=== PATIENT | female | born 1945 | race Caucasian/White ===

== ENCOUNTER 2017-10-18 05:28 | Observation (INO) | payer OTHER ==
--- NOTE | 2017-10-17 13:25 | GHP ---
[f rep st] PREOP HISTORY AND PHYSICAL DATE OF ADMISSION: 10/18/2017 CHIEF COMPLAINT: Patient is a 72-year-old, with a right-sided thyroid nodule. HISTORY OF PRESENT ILLNESS: She has had a right-sided thyroid nodule that has been biopsied, and mario ws findings suspicious for a follicular neoplasm, with papillary nuclear features. She has a 2.7 cm nodule on the right. We have recommended hemithyroidectomy, with possible total thyroidectomy. She has seen Endocrine as well. PHYSICAL EXAM: NECK: A 2 cm right-sided thyroid nodule on palpation. LUNGS: Clear to auscultation , without wheezing, rales, or rhonchi. HEART: Regular rate and rhythm. No murmurs, gallops, or rub s. IMPRESSION: Right-sided thyroid nodule. RECOMMENDATIONS: Right-sided hemithyroidectomy, and possible total thyroidectomy. The signed consen t will be on the chart. I have had a detailed discussion with Alka in the past regarding the risks of bleeding, infection, a nesthesia, pros, and cons of either a total or hemithyroidectomy, damage to the recurrent laryngeal n erves, potential need for calcium replacement. We talked about the alternative of a 2nd opinion. Ta lked about the benefits of removing the nodule and treating it if it was a cancer. She understands a nd agrees to proceed. All questions were answered. /[id number]/MODL
[2017-10-18] MEDS ORDERED: LIDOCAINE 1% 2 ML INJ ID PRN (05:39)
[2017-10-18] MEDS ORDERED: LR 1,000 ML IV ONE (05:39)
[2017-10-18] MEDS ORDERED: ceFAZolin 2 GM/DEXTROSE 100 ML IV ONE (06:31)
[2017-10-18] MEDS ORDERED: LIDO/EPI 1% **for epidural** 30 ML SDV ONE (06:56)
--- NOTE | 2017-10-18 07:06 | PDANEPAE ---
ANE Past Medical History - Cardiovascular History Hx Hypertension: No Hx Arrhythmias: No Hx Chest Pain: No Hx Coronary Artery / Peripheral Vascular Disease: No Hx CHF / Valvular Disease: No Hx Palpitations: No - Pulmonary History Hx COPD: No Hx Asthma/Reactive Airway Disease: No Hx Recent Upper Respiratory Infection: No Hx Oxygen in Use at Home: No Hx Sleep Apnea: No Sleep Apnea Screening Result - Last Documented: Negative - Neurologic History Hx Cerebrovascular Accident: No Hx Seizures: No Hx Dementia: No - Endocrine History Hx Diabetes: No - Renal History Hx Renal Disorders: No - Liver History Hx Hepatic Disorders: No - Neurological & Psychiatric Hx Hx Neurological and Psychiatric Disorders: No - Cancer History Hx Cancer: No - Congenital Disorder History Hx Congenital Disorders: No - GI History Hx Gastrointestinal Disorders: No - Other Health History Other Health History: multiple scratches,small nicks on skin. 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 - Chronic Pain History Chronic Pain: Yes (lower back) - Surgical History Prior Surgeries: none ANE Review of Systems Review of Systems: - Exercise capacity METS (RN): 4 METS ANE Patient History - Allergies Allergies/Adverse Reactions: Sulfa (Sulfonamide Antibiotics) Allergy (Verified 10/12/17 10:21) Rash - Home Medications Home Medications: Aspirin 81mg (*) 10/12/17 [Last Taken 10/11/17] Calcium 10/12/17 [Last Taken 10/11/17] Fish Oil 1000 mg (*) 10/12/17 [Last Taken 10/11/17] Herbals/Supplements -Info Only 10/12/17 [Last Taken 10/11/17] Plaquenil 200 mg (*) 10/12/17 [Last Taken 10/17/17 18:00] - NPO status NPO Since - Liquids (Date): 10/17/17 NPO Since - Liquids (Time): 23:30 NPO Since - Solids (Date): 10/17/17 NPO Since - Solids (Time): 23:30 - Smoking Hx Smoking Status: Never smoked - Family Anes Hx Family Hx Anesthesia Complications: none ANE Labs/Vital Signs - Vital Signs Blood Pressure: 133/79 Heart Rate: 77 Respiratory Rate: 16 O2 Sat (%): 92 Height: 165.1 cm Weight: 68.039 kg ANE Physical Exam - Airway Neck exam: FROM Mallampati Score: Class 3 Mouth exam: normal dental/mouth exam - Pulmonary Pulmonary: no respiratory distress - Cardiovascular Cardiovascular: regular rate and rhythym - ASA Status ASA Status: II ANE Anesthesia Plan Anesthesia Plan: general endotracheal anesthesia
[2017-10-18] MEDS ORDERED: fentaNYL 100 MCG/2 ML INJ ONE ×3 (07:15→10:00)
[2017-10-18] MEDS ORDERED: LIDOCAINE 2% 100 MG/5 ML SYR ONE (07:16)
[2017-10-18] MEDS ORDERED: ROCURONIUM 50 MG/5 ML VIAL ONE (07:16)
[2017-10-18] MEDS ORDERED: DEXAMETHASONE 4 MG/ML VIAL ONE (07:16)
[2017-10-18] MEDS ORDERED: PROPOFOL 200 MG/20 ML VIAL ONE (07:16)
[2017-10-18] MEDS ORDERED: METOCLOPRAMIDE 10 MG/2 ML VIAL ONE (07:16)
[2017-10-18] MEDS ORDERED: ONDANSETRON 4 MG/2 ML VIAL IVP PRN (09:38)
[2017-10-18] MEDS ORDERED: ALBUTEROL 3 ML DEYVIAL IH PRN (09:38)
[2017-10-18] MEDS ORDERED: NALOXONE HCL 0.4 MG/ML INJ IVP PRN (09:38)
--- NOTE | 2017-10-18 09:40 | POSTANESTH ---
Post Anesthetic Evaluation Cardiovascular Status: Similar to Pre-Op Cond Respiratory Status: Similar to Pre-op Cond. Level of Consciousness/Mental Status: Mildly Sleepy, Arousable Pain Control: Adequate, Prn Tx Ordered Nausea/Vomiting Control: Adequate, Prn Tx Ordered Complications Possibly Related to Anesthesia: None Noted
--- NOTE | 2017-10-18 09:55 | GOP ---
[f rep st] OPERATIVE REPORT DATE OF OPERATION: 10/18/2017 SURGEON: Maurice Seaman MD CREDIT MANAGER: Francois. ANESTHESIA: General endotracheal. PREOPERATIVE DIAGNOSIS: Right-sided thyroid nodule. POSTOPERATIVE DIAGNOSIS: Right-sided thyroid nodule. PROCEDURE PERFORMED: Right-sided hemithyroidectomy with isthmusectomy. FINDINGS: A 2 cm right-sided thyroid nodule. SPECIMENS: Right-sided bethany-thyroid with isthmus with frozen suspicious as above but no definitive d iagnosis. ESTIMATED BLOOD LOSS: 10 mL. DESCRIPTION OF PROCEDURE: We had marked the patient's right neck in the preoperative holding area. She had a fine-needle aspiration that had some follicular neoplasm with some papillary features suspi cious. We marked an incision and relaxed skin tension crease in her neck and injected with 1% lidoca ine with 1:100,000 epinephrine. She was sterilely prepped and draped. An incision was made through the skin and we dissected down through the platysma. Flaps were elevated. The straps were divided i n the midline. We came onto the thyroid and dissected around the thyroid gland retracting the straps laterally and the thyroid gland medially. We identified the right inferior parathyroid gland grossl y. We also identified the right recurrent laryngeal nerve. We kept this down in the neck and using traction counter traction, the gland was removed. We came across the isthmus with the clamp and tied off the remnant with 2-0 silk. Frozen section analysis showed 1 focal finding that was suspicious f or papillary carcinoma but they could not call it definitively on frozen section. We therefore elect ed to stop and wait for permanent section analysis. I did speak preoperatively with Alka and her hu sband about potential need for completion thyroidectomy. A drain was placed deep to the strap muscle s. The straps were reapproximated with 3-0 chromic as was the platysma. Five-0 nylon was used along the skin. The drain was sewn into position with 3-0 nylon. A pressure dressing was applied. She t olerated the procedure well. She was in good condition at the end of the procedure. /[id number]/MODL
[2017-10-18] MEDS ORDERED: D5W 1/2 NS 1,000 ML IV SCH (10:00)
[2017-10-18] MEDS: fentaNYL 100 MCG/2 ML INJ IVP PRN ×2 (10:02→10:22)
[2017-10-18] MEDS: HYDROCODONE/APAP 5/325 TAB PO PRN ×3 (12:18→19:43)
[2017-10-19] MEDS: HYDROCODONE/APAP 5/325 TAB PO PRN ×3 (02:09→08:29)
[2017-10-19 07:15] VITALS: BP 105/55
--- NOTE | 2017-10-19 08:27 | PDDCSUM ---
Discharge Summary Discharge Summary: Patient POD 1 s/p right hemithyroidectomy by Dr. Seaman. She is doing well. No issues breathing, swallowing. Pain controlled. Denies hoarse voice. Okay for discharge. Reviewed post op care. Follow up in 1 week for post op appointment.
--- NOTE | 2017-10-19 10:14 | ASMTLACE ---
LACE Length of stay for Answers: Less than 1 day current admission Acuity / Level of Answers: No Care: Did the patient have an inpatient admission? Comorbidities - select Answers: Opioid dependence all that apply / Chronic pain # of Emergency department Answers: 0 visits in the last 6 months Score: 4 Date Signed: 10/19/2017 10:13 AM Electronically Signed By:ANIBAL Frances
--- NOTE | 2017-10-19 10:19 | ASDISCHSUM ---
Discharge Information Plan Status:Home with No Needs Medically Cleared to Leave:10/19/2017 Discharge Date:10/19/2017 10:02 AM CM D/C Disposition:Home, Routine, Self-Care ADT D/C Disposition:Home, Routine, Self-Care Projected Discharge Date:10/19/2017 10:02 AM Transportation at D/C:Family Discharge Delay Reason: Follow-Up Date:10/19/2017 10:02 AM Discharge Slot: Final Diagnosis: Placement Information Patient Contact Information Contact Name:EDWIN Relationship: Address:[address] City:[place] Alternate Phone: State/Zip Code:[place] [address] Email: Financial Information Financial Class:Medicare Advantage Plans Primary Plan Desc:[facility] [employer] Primary Plan Number:[id number] Secondary Plan Desc: Secondary Plan Number: Assessment Information LACE LACE Length of stay for Answers: Less than 1 day current admission Acuity / Level of Answers: No Care: Did the patient have an inpatient admission? Comorbidities - select Answers: Opioid dependence all that apply / Chronic pain # of Emergency department Answers: 0 visits in the last 6 months Score: 4 Date Signed: 10/19/2017 10:13 AM Electronically Signed By:ANIBAL Frances Case Management Discharge Plan Note Case Management Discharge Discharge Order Complete? Answers: Yes Patient to Obtain Answers: via Family Medications Transportation Arranged Answers: Family/Friends Discharge Comments Notes: Pt was admitted for a planned hemithyroidectomy. She discharged home today with her and no CM needs. Date Signed: 10/19/2017 10:16 AM Electronically Signed By:Janet De Oliveira MSW Intervention Information
== END 2017-10-19 10:02 | disposition home or self-care (01) ==
LOC: F3E 05:28
PROVIDERS: ADMIT Otolaryngology; ATTEND Otolaryngology
PROC: 0GTH0ZZ Resection of Right Thyroid Gland Lobe, Open Approach (ICD-10-PCS; principal; 2017-10-18 07:15)
DX: E04.1 Nontoxic single thyroid nodule (principal); Z88.2 Allergy status to sulfonamides
CPT/HCPCS: 60220; G0378; J0690; J1100; J2001; J2270; J2704; J2765; J3010

== ENCOUNTER 2017-12-01 08:32 | Observation (INO) | payer OTHER ==
--- NOTE | 2017-11-30 08:54 | GHP ---
[f rep st] PREOP HISTORY AND PHYSICAL PATIENT NAME: Alka Dye DATE OF : 1945 IDENTIFYING DATA: This is a 72-year-old, who presents for completion thyroidectomy. HISTORY OF PRESENT ILLNESS: On 10/18/2017, the patient underwent a right-sided hemithyroidectomy wit h isthmusectomy. Pathology was deferred to permanent section analysis on frozen sections. 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 Clear margins. No negative prognostic findings on p athology. I had a discussion with Dr. Han in [facility]. We agree we should do a comp letion thyroidectomy. The patient does not have any hoarseness. PAST MEDICAL HISTORY: She is, otherwise, in good health. PHYSICAL EXAMINATION: GENERAL: No acute distress. Mood is appropriate. Voice strong. HEAD: Norm ocephalic, atraumatic. NECK: Without any thyromegaly or lymphadenopathy. Well-healed incision. [place]OD NGS: Clear without wheezing. HEART: Regular rate and rhythm. No murmurs, gallops, or rubs. 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 RECOMMENDATIONS: Completion thyroidectomy. I had a detailed discussion with the patient regarding t he risks of bleeding, infection, anesthesia, damage to the recurrent laryngeal nerves and permanent h oarseness. We talked about the potential need for permanent calcium replacement and the role the par athyroid glands play in that. We did identify some parathyroid glands on her right side. We talked about alternatives of doing a hemithyroidectomy and radioactive iodine. We talked about the benefits of completion thyroidectomy in terms of possible spread to the other side and importance of removing that side if she needs radioactive iodine. She understands, agrees to proceed, and all questions we re answered. /[id number]/MODL
--- NOTE | 2017-12-01 07:08 | PDHPUP ---
History & Physical Update H&P update statement: This history and physical update is based on an assessment of the patient which was completed after admission or registration (within 24 hours), but prior to the surgery/procedure. H&P update: H&P reviewed & patient examined, no change in patient's condition since H&P completed
[2017-12-01] MEDS ORDERED: ceFAZolin 2 GM/DEXTROSE 100 ML IV ONE (08:41)
[2017-12-01] MEDS ORDERED: LR 1,000 ML IV ONE (08:44)
[2017-12-01] MEDS ORDERED: LIDOCAINE 1% 2 ML INJ ID PRN (08:44)
[2017-12-01] MEDS ORDERED: LIDO/EPI 1% **for epidural** 30 ML SDV ONE (09:00)
--- NOTE | 2017-12-01 09:35 | PDANEPAE ---
ANE Past Medical History - Cardiovascular History Hx Hypertension: No Hx Arrhythmias: No Hx Chest Pain: No Hx Coronary Artery / Peripheral Vascular Disease: No Hx CHF / Valvular Disease: No Hx Palpitations: No - Pulmonary History Hx COPD: No Hx Asthma/Reactive Airway Disease: No Hx Recent Upper Respiratory Infection: No Hx Oxygen in Use at Home: No Hx Sleep Apnea: No Sleep Apnea Screening Result - Last Documented: Negative - Neurologic History Hx Cerebrovascular Accident: No Hx Seizures: No Hx Dementia: No - Endocrine History Hx Diabetes: No - Renal History Hx Renal Disorders: Yes Renal History Comment: FREQUENT UTI'S - Liver History Hx Hepatic Disorders: No - Neurological & Psychiatric Hx Hx Neurological and Psychiatric Disorders: No - Cancer History Hx Cancer: No - Congenital Disorder History Hx Congenital Disorders: No - GI History Hx Gastrointestinal Disorders: No - Other Health History Other Health History: MILD RHEUMATOID ARTHRITIS MEDICATION EVERY 2-3 DAYS. multiple scratches,small nicks on skin. 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 - Chronic Pain History Chronic Pain: Yes (lower back) - Surgical History Prior Surgeries: RT TRAVIS THYROIDECTOMY ANE Review of Systems Review of Systems: - Exercise capacity METS (RN): 4 METS ANE Patient History - Allergies Allergies/Adverse Reactions: Sulfa (Sulfonamide Antibiotics) Allergy (Verified 12/01/17 08:57) Rash - Home Medications Home Medications: Calcium Carbonate [Oyster Shell Calcium 500 mg (*)] 1,500 mg PO DAILY 10/12/17 [ Last Taken 11/24/17] Herbals/Supplements -Info Only 1 ea PO DAILY 10/12/17 [Last Taken 11/24/17] Hydroxychloroquine Sulfate [Plaquenil 200 mg (*)] 200 mg PO Q2D@18 10/12/17 [ Last Taken 11/30/17 09:00] Cholecalciferol Vit D3 [Vitamin D3 (*)] 5,000 units PO DAILY 10/18/17 [Last Taken 11/24/17] Aspirin [Aspirin 81mg (*)] 81 mg PO DAILY 11/11/17 [Last Taken 11/24/17] - NPO status NPO Since - Liquids (Date): 12/01/17 NPO Since - Liquids (Time): 06:30 NPO Since - Solids (Date): 11/30/17 NPO Since - Solids (Time): 00:59 - Smoking Hx Smoking Status: Never smoked - Family Anes Hx Family Hx Anesthesia Complications: none ANE Labs/Vital Signs - Vital Signs Blood Pressure: 135/71 Heart Rate: 74 Respiratory Rate: 19 O2 Sat (%): 95 Height: 165.1 cm Weight: 68.039 kg ANE Physical Exam - Airway Neck exam: FROM Mallampati Score: Class 2 - Pulmonary Pulmonary: no respiratory distress - Cardiovascular Cardiovascular: regular rate and rhythym - ASA Status ASA Status: I ANE Anesthesia Plan Anesthesia Plan: general endotracheal anesthesia
[2017-12-01] MEDS ORDERED: DEXAMETHASONE 4 MG/ML VIAL ONE ×2 (09:38)
[2017-12-01] MEDS ORDERED: METOCLOPRAMIDE 10 MG/2 ML VIAL ONE (09:38)
[2017-12-01] MEDS ORDERED: LIDOCAINE 2% 100 MG/5 ML SYR ONE (09:38)
[2017-12-01] MEDS ORDERED: ROCURONIUM 50 MG/5 ML VIAL ONE (09:38)
[2017-12-01] MEDS ORDERED: PROPOFOL 200 MG/20 ML VIAL ONE (09:38)
[2017-12-01] MEDS ORDERED: MIDAZOLAM 2 MG/2 ML VIAL ONE (09:38)
[2017-12-01] MEDS ORDERED: PHENYLEPHRINE HCL 100 MCG/ML SYR ONE (10:17)
[2017-12-01] MEDS ORDERED: NEOSTIGMINE METHYLSULFATE 5 MG/5 ML SYR ONE (11:03)
[2017-12-01] MEDS ORDERED: GLYCOPYRROLATE 0.2 MG/1 ML VIAL ONE ×2 (11:03)
[2017-12-01] MEDS ORDERED: ACETAMINOPHEN 160 MG/5 ML UDCUP PO PRN (11:27)
[2017-12-01] MEDS ORDERED: ONDANSETRON 4 MG/2 ML VIAL IVP PRN ×2 (11:27→11:33)
[2017-12-01] MEDS ORDERED: fentaNYL 100 MCG/2 ML INJ IVP PRN (11:33)
[2017-12-01] MEDS ORDERED: ALBUTEROL 3 ML DEYVIAL IH PRN (11:33)
[2017-12-01] MEDS ORDERED: NALOXONE HCL 0.4 MG/ML INJ IVP PRN (11:33)
[2017-12-01] MEDS ORDERED: CALCIUM CARBONATE 500 MG CHEWABLE TAB PO PRN (11:39)
--- NOTE | 2017-12-01 11:45 | GOP ---
[f rep st] OPERATIVE REPORT DATE OF OPERATION: 12/01/2017 SURGEON: Maurice Seaman MD YARN INSPECTOR: Karo Ayala PA-C ANESTHESIA: General endotracheal. PREOPERATIVE DIAGNOSIS: Papillary carcinoma of the thyroid. POSTOPERATIVE DIAGNOSIS: Papillary carcinoma of the thyroid. PROCEDURE PERFORMED: Completion thyroidectomy (left side). FINDINGS: Left thyroid removed as above. SPECIMENS: Left thyroid. ESTIMATED BLOOD LOSS: 25 mL. DESCRIPTION OF PROCEDURE: The patient was placed in a supine position. We had marked her left neck. She was orally endotracheally intubated. She had a previous incision from a right-sided hemithyroi dectomy. Final pathology showed that to be a papillary carcinoma. She presents for completion thyro idectomy on the left. We injected the previous incision with 1% lidocaine with 1:200,000 epinephrine . She was sterilely prepped and draped with a [id number] solution. We came through our previou s incision. We dissected down through the platysma. We did tie off a superficial vein on the right side. We dissected the straps in the midline. We came over the thyroid gland using traction/counter traction technique, dissecting the straps away from it. We identified the inferior parathyroid gland . We dissected the tissue away superiorly and came down the superior pole. We came across the isthm us. We kept our dissection close to the gland. We found the nerve near the cricothyroid joint, and this was not damaged. The thyroid on the left was removed and sent to Pathology for permanent sectio n analysis. Hemostasis was achieved with bipolar. The wound was copiously irrigated and suctioned. A drain was placed deep to the strap muscles. The straps and platysma were reapproximated with 3-0 chromics. The skin was reapproximated with nylons. Pressure dressing was applied. She tolerated th e procedure well, and was in good condition at the end of the procedure. /[id number]/MODL
[2017-12-01] MEDS: HYDROCOD/APAP 7.5/325 IN 15ML UDCUP PO PRN ×3 (13:23→21:56)
[2017-12-01] MEDS: D5W 1/2 NS 1,000 ML IV SCH (13:24)
--- NOTE | 2017-12-01 14:57 | SOAPPROG ---
SOAP Progress Note Assessment/Plan: pt s/p completion thyroidecomy. Hs sore throat, mild neck discomfort. No numbness. neck- dressing in palce. Plan:pt doing well. Plan for discharge tomorrow. 12/01/17 14:56 Objective: Vital Signs Temp Pulse Resp BP Pulse Ox 36.7 C 73 16 141/75 H 95 12/01/17 13:15 12/01/17 13:15 12/01/17 13:15 12/01/17 13:15 12/01/17 13:15 11/30/17 12/01/17 12/02/17 05:59 05:59 05:59 Intake Total 1000 Output Total 25 Balance 975 - Pending Discharge Pending Discharge Within 24 Hours: Yes Pending Discharge Date: 12/02/17 Pending Discharge Time: 11:00 ICD10 Worksheet Patient Problems: Problems Problem Status Onset Thyroid mass Acute
[2017-12-02] MEDS: D5W 1/2 NS 1,000 ML IV SCH (02:24)
[2017-12-02] MEDS: HYDROCOD/APAP 7.5/325 IN 15ML UDCUP PO PRN ×2 (02:27→08:42)
[2017-12-02] MEDS ORDERED: LEVOTHYROXINE 100 MCG TAB PO SCH (06:00)
[2017-12-02] MEDS ORDERED: CALCIUM CARBONATE 500 MG CHEWABLE TAB PO SCH (09:00)
[2017-12-02 11:41] VITALS: BP 118/65
--- NOTE | 2017-12-02 12:00 | ASMTCMCOM ---
CM Note CM Note Notes: Patient admitted for planned completion thyroidectomy. She is POD #1 and has an expected sore throat. Plan for d/c tomorrow. Patient is independent and will d/c with support of . Date Signed: 12/02/2017 11:56 AM Electronically Signed By:Bridgette Gordon RN
--- NOTE | 2017-12-02 12:56 | PDDCSUM ---
Discharge Summary Discharge Summary: Pt POD #1 s/p completion thyroidectomy by Dr. Seaman. She is doing well. Pain controlled. Denies numbness, twitching muscles. No hoarse voice. Minimal KATYA drain output. Vitals stable. Calcium normal. Drain removed, dressing replaced. She is to take synthroid as prescribed, 2 tums three times per day. Okay for discharge. Follow up next week in office.
== END 2017-12-02 14:33 | disposition home or self-care (01) ==
LOC: F3N 08:32 → F3E 10:33
PROVIDERS: ADMIT Otolaryngology; ATTEND Otolaryngology
PROC: 0GTG0ZZ Resection of Left Thyroid Gland Lobe, Open Approach (ICD-10-PCS; principal; 2017-12-01 09:30)
DX: C73 Malignant neoplasm of thyroid gland (principal)
CPT/HCPCS: 60252; G0378; J0690; J1100; J2001; J2250; J2270; J2370; J2704; J2710; J2765; J3010